=== PATIENT | female | born 1955 | race Caucasian/White ===

== ENCOUNTER 2019-08-07 16:04 | Emergency (ER) | payer SELFPAY ==
[~2019-08-07] VITALS: Ht 167.6 cm; Wt 86.2 kg
[2019-08-07 16:17] VITALS: Ht 167.6 cm; Wt 86.2 kg
[2019-08-07 17:08] LABS: PLATELET COUNT 265 x10^3mcL (130-400); RED CELL DISTRIBUTION WIDTH 13.7 % (11.5-14.5)
[2019-08-07 17:19] LABS: CALCIUM 8.9 mg/dL (8.5-10.1); CARBON DIOXIDE 27.3 mmol/L (21-32); CHLORIDE SERUM 101 mmol/L (98-107); CREATININE SERUM 0.9 mg/dL (0.6-1.0); GFR1 > 60 mL/min; GLUCOSE SERUM 100 mg/dL (74-106); POTASSIUM SERUM 3.7 mmol/L (3.5-5.1); SODIUM SERUM 138 mmol/L (136-145)
[2019-08-07 17:24] LABS: ALKALINE PHOSPHATASE 96 U/L (46-116); ALT/SGPT 29 U/L (14-59); AST/SGOT 25 U/L (15-37); BILIRUBIN TOTAL 0.4 mg/dL (0.20-1.00); TOTAL PROTEIN, SERUM 7.6 g/dL (6.4-8.2)
[2019-08-07 17:47] LABS: ATYPICAL LYMPH 1 %; BAND NEUTROPHIL 3 % (0-10); MONOCYTE 17 % (0-7); SEGMENTED NEUTROPHILS 67 % (37-75)
[2019-08-07 17:48] LABS: PLATELET MORPHOLOGY PLATELETS NORMAL; rbc morphology (normal/abnorm) NORMAL (NORMAL)
[2019-08-07 18:06] LABS: microscopic required? YES; urine erythrocyte TRACE (NEGATIVE)
[2019-08-07 20:59] VITALS: BP 119/69
== END 2019-08-07 20:59 | disposition left against medical advice (07) ==
LOC: ED 16:04
PROVIDERS: Student in an Organized Health Care Education/Training Program
DX: A41.89 Other specified sepsis (principal); B34.9 Viral infection, unspecified; D72.829 Elevated white blood cell count, unspecified; Z88.6 Allergy status to analgesic agent
CPT/HCPCS: J7030; Q0092